=== PATIENT | female | born 1995 | race Caucasian/White ===

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

== ENCOUNTER 2021-06-18 08:31 | Emergency (ER) | payer BC ==
[~2021-06-18 08:31] MED LIST: BENTYL 20MG TAB20 MG PO; KEFLEX CAP 500500 MG PO; VIBRAMYCIN100 MG PO; ZOFRAN ODT 4 MG4 MG PO; ZOFRAN4 MG PO
[2021-06-18 09:09] LABS: HEMOGLOBIN 13.1 gm/dl (12.3-15.3); RED BLOOD COUNT 4.47 M/UL (4.00-5.10); WHITE BLOOD COUNT 9.8 K/UL (4.5-11.0)
[2021-06-18 09:39] LABS: BUN/CREATININE RATIO 6 (0-10)
[2021-06-18] MEDS ORDERED: MACROBID 100 M100 M1 PO (10:19)
== END 2021-06-18 10:56 | disposition home or self-care (01) ==
LOC: ER1 08:31
PROVIDERS: Nurse Practitioner
DX: N39.0 Urinary tract infection, site not specified (principal); F17.210 Nicotine dependence, cigarettes, uncomplicated
CPT/HCPCS: 80048; 81001; 84702; 85025; 99284